=== PATIENT | female | born 1985 | race Caucasian/White ===

== ENCOUNTER → 2019-12-28 | Outpatient (CLI) | payer BC ==
--- NOTE | 2019-12-28 10:59 | MM ---
Reason for exam: clinical finding. Baseline mammogram. History: Took hormonal contraceptives for 2 years beginning at age 17. Physical Findings: Nurse Summary: 0.5cm nodule in the right breast at 5 o'clock (nurse ms). MG Diagnostic Mammo w CAD LEXII Bilateral CC and MLO view(s) were taken. The breast tissue is heterogeneously dense. This may lower the sensitivity of mammography. There is no discrete abnormality. These results were verbally communicated with the patient and result sheet given to the patient on 12/28/19. ASSESSMENT: Incomplete: need additional imaging evaluation, BI-RAD 0 RECOMMENDATION: Ultrasound of the right breast. (palpable by patient and nurse)
--- NOTE | 2019-12-28 11:00 | USB ---
Reason for exam: clinical finding. History: Took hormonal contraceptives for 2 years beginning at age 17. US Breast Limited RT Right limited breast ultrasound including focal area of concern, retroareolar and axilla demonstrates no cystic or solid lesion seen. Dense tissue at palpable. These results were verbally communicated with the patient and result sheet given to the patient on 12/28/19. ASSESSMENT: Negative, BI-RAD 1 RECOMMENDATION: Routine screening mammogram of both breasts at age 38. Manage patient on a clinical basis.
== END | disposition home or self-care (01) ==
LOC: RADMAMWWP 09:40
PROVIDERS: ATTEND Family Medicine
DX: R92.8 Other abnormal and inconclusive findings on diagnostic imaging of breast (principal)
CPT/HCPCS: 77066

== ENCOUNTER → 2020-06-01 | Outpatient (CLI) | payer BC ==
--- NOTE | 2020-06-01 09:03 | MR ---
EXAMINATION TYPE: MR brain wo con DATE OF EXAM: 06/01/2020 COMPARISON: NONE HISTORY: Hx of migraine, New onset of different type of headache since February-post covid, Neck pain TECHNIQUE: Multiplanar, multisequence imaging of the brain and brainstem is performed without IV cont rast. FINDINGS: Diffusion weighted images demonstrate no evidence of a recent infarct or other diffusion abnormality. The ventricular system and cisternal spaces are normal in size and appearance. The brain volume is a ge appropriate slight asymmetry and lobulation to the lateral ventricles. There are scattered small f oci of T2 hyperintensity seen throughout the white matter bilaterally. Approximately 15-20 scattered lesions noted. In addition there is more confluent right periventricular T2 hyperintensity coronal im age 14 and axial image 21. This has low T1 signal on sagittal image 13. There is prominent CSF anteri or aspect middle cranial fossa with additional area of volume loss lateral inferior left temporal lob e. Midline structures demonstrate normal morphology. The craniocervical junction appears within normal limits. Normal vascular flow voids are present. Mild mucosal thickening involving ethmoid sinuses rodrigo aterally and mild to minimal mucosal thickening involving bilateral maxillary sinuses. Hfsj-rd-azjtdj te mucosal thickening posterior left ethmoid sinuses and right frontal sinus. Globes are intact bilat erally. IMPRESSION: 1. Ehgr-hl-zgxgnhts nonspecific white matter changes somewhat prominent for patient's age, differenti al includes altered vascular mechanics related to products of migraine headaches. Other etiologies no t excluded. 2. Mild to moderate chronic paranasal sinus disease. 3. 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 Correlation with old outside CT or MRI would be extremely beneficial if this patient has such study.
== END | disposition home or self-care (01) ==
LOC: RADMRIMAIN 08:13
PROVIDERS: ATTEND Family Medicine
DX: R90.82 White matter disease, unspecified (principal); J32.8 Other chronic sinusitis
CPT/HCPCS: 70551

== ENCOUNTER → 2020-08-17 | Outpatient (CLI) | payer BC ==
[2020-08-17 16:50] LABS: Partial Thromboplastin Time 24.6 sec (22.0-30.0); Prothrombin Time 10.8 sec (9.0-12.0)
[2020-08-17 23:14] LABS: HCT 40.8 % (37.2-46.3); HGB 13.1 g/dL (12.0-15.0); MCH 30.5 pg (27.0-32.0); MCHC 32.1 g/dL (32.0-37.0); MCV 95.1 fL (80.0-97.0); Platelet Count 235 X 10*3/uL (140-440); RBC 4.29 X 10*6/uL (4.10-5.20); WBC 8.02 X 10*3/uL (4.50-10.00)
[2020-08-18 02:41] LABS: Cardiolipin Ab IgG Interp NEGATIVE (NEGATIVE); Cardiolipin Ab IgM Interp NEGATIVE (NEGATIVE); Cardiolipin IgA Antibody <0.5 U/mL; Cardiolipin IgM Antibody 0.4 U/mL
[2020-08-18 11:09] LABS: Protein C Antigen 99 % (72-160)
[2020-08-18 12:14] LABS: Anti-Thrombin III Antigen 82 % (80 - 120); Protein S Antigen 99 % (50 - 140)
[2020-08-18 13:28] LABS: African American GFR (CKD) 128.3 (60.0-200.0); Albumin 4.8 g/dL (3.80-4.90); Anion Gap 20.4 mmol/L (4.00-12.00); Carbon Dioxide 16.6 mmol/L (21.6-31.8); Globulin 2.4 g/dL (1.6-3.3); Non-African American GFR(CKD) 110.7 (60.0-200.0); Total Bilirubin 0.5 mg/dL (0.2-1.2); Total Protein 7.2 g/dL (6.2-8.2)
[2020-08-18 13:32] LABS: Protein C (Activity) 89 % (71-138)
[2020-08-18 13:33] LABS: Anti-Thrombin III Activity 97 % (79-109)
[2020-08-18 13:46] LABS: APTT 36 Sec(s) (<43); Dilute Russell Viper Venom 43 Sec(s) (<44)
== END | disposition home or self-care (01) ==
LOC: LABWHC1 15:22
PROVIDERS: ATTEND Physician Assistant
DX: R51.9 Headache, unspecified (principal)
CPT/HCPCS: 36415; 80053; 83090; 85027; 85300; 85301; 85302; 85303; 85305; 85306; 85379; 85384; 85610; 85613; 85730; 86147

== ENCOUNTER 2022-01-31 08:37 | Emergency (ER) | payer BC ==
[2022-01-31] MEDS ORDERED: SODIUM CHLORIDE 0.9% 1,000 ML IV ONE (09:33)
[2022-01-31 10:21] LABS: Appearance,Urine Clear (Clear); Basophils % (A) 0 %; Bilirubin,Urine Negative (Negative); Blood,Urine Negative (Negative); Color,Urine Colorless; Eosinophils # (A) 0.1 k/uL (0-0.7); Eosinophils % (A) 2 %; Glucose,Urine (UA) Negative (Negative); HCT 43.1 % (34.0-46.0); HGB 14.3 gm/dL (11.4-16.0); Ketones,Urine Negative (Negative); Leukocyte Esterase,Urine Negative (Negative); Lymphocytes # (A) 1.1 k/uL (1.0-4.8); Lymphocytes % (A) 16 %; MCH 30.4 pg (25.0-35.0); MCHC 33.1 g/dL (31.0-37.0); MCV 91.8 fL (80.0-100.0); Mean Platelet Volume 7.9; Monocytes # (A) 0.3 k/uL (0-1.0); Monocytes % (A) 4 %; Neutrophils # (A) 5.5 k/uL (1.3-7.7); Neutrophils % (A) 77 %; Nitrite,Urine Negative (Negative); PH, Urine 6.5 (5.0-8.0); Platelet Count 281 k/uL (150-450); Protein,Urine Negative (Negative); RDW 12.7 % (11.5-15.5); Specific Gravity,Urine 1.002 (1.001-1.035); Urobilinogen,Urine <2.0 mg/dL (<2.0); WBC 7.1 k/uL (3.8-10.6)
[2022-01-31 10:36] LABS: ALT 36 U/L (4-34); AST 45 U/L (14-36); African American GFR (CKD) >90 (>60 ml/min/1.73 sqM); Albumin 5.2 g/dL (3.5-5.0); Alkaline Phosphatase 70 U/L (38-126); Anion Gap 15 mmol/L; Blood Urea Nitrogen 11 mg/dL (7-17); Calcium 9.5 mg/dL (8.4-10.2); Carbon Dioxide 22 mmol/L (22-30); Chloride 101 mmol/L (98-107); Glucose 106 mg/dL (74-99); Lipase 95 U/L (23-300); Non-African American GFR(CKD) >90 (>60 ml/min/1.73 sqM); Potassium 3.4 mmol/L (3.5-5.1); Sodium 138 mmol/L (137-145); Total Bilirubin 0.7 mg/dL (0.2-1.3); Total Protein 8.6 g/dL (6.3-8.2)
--- NOTE | 2022-01-31 11:29 | CT ---
EXAMINATION TYPE: CT abdomen pelvis wo con DATE OF EXAM: 01/31/2022 HISTORY: Back pain that wraps around to front of abdomen CT DLP: 433.9 mGycm. Automated Exposure Control for Dose Reduction was Utilized. TECHNIQUE: CT scan of the abdomen and pelvis is performed without oral or IV contrast. COMPARISON: NONE FINDINGS: Within the limitations of a non-contrast study, the following observations are made. LUNG BASES: No significant abnormality is appreciated. LIVER/GB: Visualized liver is heterogeneously hypodense. PANCREAS: No significant abnormality is seen. SPLEEN: No significant abnormality is seen. ADRENALS: No significant abnormality is seen. KIDNEYS: No renal calculi or hydronephrosis is seen bilaterally. BOWEL: Suboptimal evaluation without enteric contrast and patient having little intra-abdominal fat. No suspicious small or large bowel dilatation is seen. Surgical changes from appendectomy in the righ t pelvis are noted.. GENITAL ORGANS: Anteverted uterus. LYMPH NODES: No greater than 1cm abdominal or pelvic lymph nodes are appreciated. OSSEOUS STRUCTURES: Rkppuhrm-ip-yxqboa disc space narrowing with vacuum disc phenomenon at lumbosacra l junction. Mild to moderate spurring. OTHER: No significant additional abnormality is seen. IMPRESSION: No renal stones or hydronephrosis is seen bilaterally. No acute findings identified on no ncontrast CT.
--- NOTE | 2022-01-31 12:29 | ED ---
Abdominal Pain HPI - General Chief Complaint: Abdominal Pain Stated Complaint: poss TSS - toxic shock syndrome Time Seen by Provider: 01/31/22 09:00 Source: patient Mode of arrival: ambulatory Limitations: no limitations - History of Present Illness Initial Comments: 36-year-old female past history of hypertension presents to emergency department with concern for toxic shock syndrome. States that she wore a tampon for 12 hours. Did not realize that she had 2 tampons in. Patient subsequently developed lower abdominal pain, fevers, bilateral flank pain and swollen ankles. States that her vaginal bleeding has completed at this time. Denies any v aginal discharge. Patient arrives afebrile. Has not taken any Motrin or Tylenol for fever control. Reports that the lower extremity swelling has resolved. Admits to increased frequency of urination without hematuria. Also reports to foul-smelling stools. Last antibiotic use was in November. No diarrhea. Mild lower abdominal cramping. No other alleviating, precipitating or modifying factors - Related Data Home Medications Medication Instructions Recorded Confirmed L.acidoph,Paracasei, B.lactis 1 cap PO DAILY 01/31/22 01/31/22 [Probiotic] Multivitamins, Thera [Multivitamin 1 tab PO DAILY 01/31/22 01/31/22 (formulary)] Rimegepant Sulfate [Nurtec Odt] 75 mg PO DAILY PRN 01/31/22 01/31/22 amLODIPine [Norvasc] 5 mg PO HS 01/31/22 01/31/22 Allergies Allergy/AdvReac Type Severity Reaction Status Date / Time No Known Allergies Allergy Verified 01/31/22 11:58 Review of Systems ROS Statement: Those systems with pertinent positive or pertinent negative responses have been documented in the HPI. ROS Other: All systems not noted in ROS Statement are negative. Past Medical History Past Medical History: Hypertension Additional Past Medical History / Comment(s): scleroderma/reynauds History of Any Multi-Drug Resistant Organisms: None Reported Past Surgical History: Appendectomy Past Psychological History: No Psychological Hx Reported Smoking Status: Never smoker Past Alcohol Use History: Occasional Past Drug Use History: None Reported General Exam Limitations: no limitations General appearance: alert, in no apparent distress Head exam: Present: atraumatic, normocephalic, normal inspection Eye exam: Present: normal appearance, PERRL, EOMI. Absent: scleral icterus, conjunctival injection, periorbital swelling ENT exam: Present: normal exam, mucous membranes moist Neck exam: Present: normal inspection. Absent: tenderness, meningismus, lymphadenopathy Respiratory exam: Present: normal lung sounds bilaterally. Absent: respiratory distress, wheezes, rales, rhonchi, stridor Cardiovascular Exam: Present: regular rate, normal rhythm, normal heart sounds. Absent: systolic murmur, diastolic murmur, rubs, gallop, clicks GI/Abdominal exam: Present: soft, normal bowel sounds. Absent: distended, tenderness, guarding, rebound, rigid Extremities exam: Present: normal inspection, full ROM, normal capillary refill. Absent: tenderness, pedal edema, joint swelling, calf tenderness Back exam: Present: normal inspection Neurological exam: Present: alert, oriented X3, CN II-XII intact Psychiatric exam: Present: normal affect, normal mood Skin exam: Present: warm, dry, intact, normal color. Absent: rash Course Vital Signs 01/31/22 01/31/22 08:58 13:32 Temperature 97.9 F 98.2 F Pulse Rate 68 63 Respiratory 18 16 Rate Blood Pressure 147/91 138/86 O2 Sat by Pulse 99 98 Oximetry Medical Decision Making - Medical Decision Making Upon arrival the patient was placed into room 20. History and physical exam was performed. IV access is established and the patient was given a liter bolus of normal saline. Laboratory studies are conducted and reviewed. CT of abdomen and pelvis was performed which demonstrates no acute process. I did discuss the laboratory results and CT with the patient. Patient will be discharged home at this time and instructed follow up with her primary care doctor for further evaluation. Return for any new or worsening symptoms. Patient is afebrile with no increase in white count. Patient denies any vaginal discharge and therefore states that the likelihood of toxic shock is slim. Patient understood this. Discharged home in stable condition - Lab Data Result diagrams: 01/31/22 10:01/31/22 10: Lab Results 01/31/22 01/31/22 01/31/22 Range/Units 10: 10: 10:07 WBC 7.1 (3.8-10.6) k/uL RBC 4.70 (3.80-5.40) m/uL Hgb 14.3 (11.4-16.0) gm/dL Hct 43.1 (34.0-46.0) % MCV 91.8 (80.0-100.0) fL MCH 30.4 (25.0-35.0) pg MCHC 33.1 (31.0-37.0) g/dL RDW 12.7 (11.5-15.5) % Plt Count 281 (150-450) k/uL MPV 7.9 Neutrophils % 77 % Lymphocytes % 16 % Monocytes % 4 % Eosinophils % 2 % Basophils % 0 % Neutrophils # 5.5 (1.3-7.7) k/uL Lymphocytes # 1.1 (1.0-4.8) k/uL Monocytes # 0.3 (0-1.0) k/uL Eosinophils # 0.1 (0-0.7) k/uL Basophils # 0.0 (0-0.2) k/uL Sodium (137-145) mmol/L Potassium (3.5-5.1) mmol/L Chloride (98-107) mmol/L Carbon Dioxide (22-30) mmol/L Anion Gap mmol/L BUN (7-17) mg/dL Creatinine (0.52-1.04) mg/dL Est GFR (CKD-EPI)AfAm (>60 ml/min/1.73 sqM) Est GFR (CKD-EPI)NonAf (>60 ml/min/1.73 sqM) Glucose (74-99) mg/dL Plasma Lactic Acid Alvaro (0.7-2.0) mmol/L Calcium (8.4-10.2) mg/dL Total Bilirubin (0.2-1.3) mg/dL AST (14-36) U/L ALT (4-34) U/L Alkaline Phosphatase (38-126) U/L Total Protein (6.3-8.2) g/dL Albumin (3.5-5.0) g/dL Lipase (23-300) U/L Urine Color Colorless Urine Appearance Clear (Clear) Urine pH 6.5 (5.0-8.0) Ur Specific Ross 1.002 (1.001-1.035) Urine Protein Negative (Negative) Urine Glucose (UA) Negative (Negative) Urine Ketones Negative (Negative) Urine Blood Negative (Negative) Urine Nitrite Negative (Negative) Urine Bilirubin Negative (Negative) Urine Urobilinogen <2.0 (<2.0) mg/dL Ur Leukocyte Esterase Negative (Negative) Urine HCG, Qual Not Detected (Not Detectd) 01/31/22 01/31/22 Range/Units 10:07 10:07 WBC (3.8-10.6) k/uL RBC (3.80-5.40) m/uL Hgb (11.4-16.0) gm/dL Hct (34.0-46.0) % MCV (80.0-100.0) fL MCH (25.0-35.0) pg MCHC (31.0-37.0) g/dL RDW (11.5-15.5) % Plt Count (150-450) k/uL MPV Neutrophils % % Lymphocytes % % Monocytes % % Eosinophils % % Basophils % % Neutrophils # (1.3-7.7) k/uL Lymphocytes # (1.0-4.8) k/uL Monocytes # (0-1.0) k/uL Eosinophils # (0-0.7) k/uL Basophils # (0-0.2) k/uL Sodium 138 (137-145) mmol/L Potassium 3.4 L (3.5-5.1) mmol/L Chloride 101 (98-107) mmol/L Carbon Dioxide 22 (22-30) mmol/L Anion Gap 15 mmol/L BUN 11 (7-17) mg/dL Creatinine 0.55 (0.52-1.04) mg/dL Est GFR (CKD-EPI)AfAm >90 (>60 ml/min/1.73 sqM) Est GFR (CKD-EPI)NonAf >90 (>60 ml/min/1.73 sqM) Glucose 106 H (74-99) mg/dL Plasma Lactic Acid Alvaro 0.9 (0.7-2.0) mmol/L Calcium 9.5 (8.4-10.2) mg/dL Total Bilirubin 0.7 (0.2-1.3) mg/dL AST 45 H (14-36) U/L ALT 36 H (4-34) U/L Alkaline Phosphatase 70 (38-126) U/L Total Protein 8.6 H (6.3-8.2) g/dL Albumin 5.2 H (3.5-5.0) g/dL Lipase 95 (23-300) U/L Urine Color Urine Appearance (Clear) Urine pH (5.0-8.0) Ur Specific Ross (1.001-1.035) Urine Protein (Negative) Urine Glucose (UA) (Negative) Urine Ketones (Negative) Urine Blood (Negative) Urine Nitrite (Negative) Urine Bilirubin (Negative) Urine Urobilinogen (<2.0) mg/dL Ur Leukocyte Esterase (Negative) Urine HCG, Qual (Not Detectd) Disposition Clinical Impression: Flank pain, Fever, Leg swelling, Abdominal pain Disposition: HOME SELF-CARE Condition: Stable Instructions (If sedation given, give patient instructions): Abdominal Pain (ED) Additional Instructions: Please take MiraLAX every other day until you have smooth bowel movements. Follow-up with [facility] primary care doctor in 2-4 days. Return for any new or worsening symptoms Is patient prescribed a controlled substance at d/c from ED?: No Referrals: Jena Thompson MD [Primary Care Provider] - 1-2 days Time of Disposition: 13:10
[2022-01-31 13:32] VITALS: BP 138/86; PULSE 63; RESP 16; TEMP 98.2
== END 2022-01-31 13:32 | disposition home or self-care (01) ==
LOC: EC 08:37
DX: R10.30 Lower abdominal pain, unspecified (principal); R50.9 Fever, unspecified; I10 Essential (primary) hypertension; M79.89 Other specified soft tissue disorders
CPT/HCPCS: 36415; 74176; 80053; 81003; 81025; 83605; 83690; 85025; 96360; 99285

== ENCOUNTER → 2022-12-27 | Outpatient (CLI) | payer BC ==
--- NOTE | 2022-12-27 17:37 | XR ---
EXAMINATION TYPE: XR KUB DATE OF EXAM: 12/27/2022 Comparison: None Clinical History: 37-year-old female N20.0 calculus Findings: Nonobstructive bowel gas pattern. Mild overall stool. No suspicious calcification seen. Impression: No specific abnormality seen.
== END | disposition home or self-care (01) ==
LOC: RADXRMAIN 13:52
PROVIDERS: ATTEND Urology
DX: N20.0 Calculus of kidney (principal)
CPT/HCPCS: 74018

== ENCOUNTER → 2023-02-26 | Outpatient (CLI) | payer BC ==
--- NOTE | 2023-02-26 12:28 | XR ---
EXAMINATION TYPE: XR KUB DATE OF EXAM: 02/26/2023 COMPARISON: KUB 12/27/2022, CT abdomen and pelvis 01/31/2022 HISTORY: Renal calculi TECHNIQUE: Single supine KUB image of the abdomen is obtained FINDINGS: Small bowel demonstrates no evidence for dilatation or air fluid levels. Gas and fecal material is seen in non-distended colon. No definitive renal or ureteral calculi. Stable right sided pelvic phlebolith. The lung bases are clear. The osseous structures are intact. IMPRESSION: 1. Overall nonobstructive bowel gas pattern. 2. No definitive renal or ureteral calculi.
== END | disposition home or self-care (01) ==
LOC: RADXRMAIN 11:58
PROVIDERS: ATTEND Urology
DX: N20.0 Calculus of kidney (principal); R14.0 Abdominal distension (gaseous)
CPT/HCPCS: 74018

== ENCOUNTER 2023-04-04 16:38 | Emergency (ER) | payer BC ==
--- NOTE | 2023-04-04 16:50 | ED ---
Chest Pain HPI - General Chief Complaint: Chest Pain Stated Complaint: SOB Time Seen by Provider: 04/04/23 16:46 Source: patient Mode of arrival: ambulatory Limitations: no limitations - History of Present Illness Initial Comments: 37-year-old female presents to the emergency department reporting chest pain. States it's been going on for the past 3 days. She describes it as a pressure sensation over her anterior chest. Today the patient felt mildly short of breath and had some tingling in her fingers. Denies previous cardiac history. No history of DVT or PE. No ripping or tearing sensation to her back. Does admit to recent upper respiratory symptoms. Pain is not pleuritic. She did not take anything for the symptoms before coming into the emergency department. Denies significant family history of cardiac disease. No concern for . No history of intravenous drug use. No other alleviating, precipitating or modifying factors - Related Data Home Medications Medication Instructions Recorded Confirmed Rimegepant Sulfate [Nurtec Odt] 75 mg PO DAILY PRN 01/31/22 04/04/23 Aspirin EC [Ecotrin Low Dose] 81 mg PO DAILY 04/04/23 04/04/23 lisinopriL [Prinivil] 10 mg PO DAILY 04/04/23 04/04/23 Allergies Allergy/AdvReac Type Severity Reaction Status Date / Time No Known Allergies Allergy Verified 04/04/23 19:01 Review of Systems ROS Statement: Those systems with pertinent positive or pertinent negative responses have been documented in the HPI. ROS Other: All systems not noted in ROS Statement are negative. Past Medical History Past Medical History: Hypertension Additional Past Medical History / Comment(s): scleroderma/reynauds History of Any Multi-Drug Resistant Organisms: None Reported Past Surgical History: Appendectomy Past Psychological History: No Psychological Hx Reported Smoking Status: Never smoker Past Alcohol Use History: Occasional Past Drug Use History: None Reported General Exam Limitations: no limitations General appearance: alert, in no apparent distress Head exam: Present: atraumatic, normocephalic, normal inspection Eye exam: Present: normal appearance, PERRL, EOMI. Absent: scleral icterus, conjunctival injection, periorbital swelling ENT exam: Present: normal exam, mucous membranes moist Neck exam: Present: normal inspection. Absent: tenderness, meningismus, lymphadenopathy Respiratory exam: Present: normal lung sounds bilaterally. Absent: respiratory distress, wheezes, rales, rhonchi, stridor Cardiovascular Exam: Present: regular rate, normal rhythm, normal heart sounds. Absent: systolic murmur, diastolic murmur, rubs, gallop, clicks GI/Abdominal exam: Present: soft, normal bowel sounds. Absent: distended, tenderness, guarding, rebound, rigid Extremities exam: Present: normal inspection, full ROM, normal capillary refill. Absent: tenderness, pedal edema, joint swelling, calf tenderness Back exam: Present: normal inspection Neurological exam: Present: alert, oriented X3, CN II-XII intact Psychiatric exam: Present: normal affect, normal mood Skin exam: Present: warm, dry, intact, normal color. Absent: rash Course Vital Signs 04/04/23 04/04/23 04/04/23 16:41 17:30 18:00 Temperature 97.6 F Pulse Rate 78 80 78 Respiratory 16 17 19 Rate Blood Pressure 165/93 141/90 132/86 O2 Sat by Pulse 99 100 100 Oximetry 04/04/23 04/04/23 04/04/23 19:00 20:00 20:13 Temperature 98.1 F Pulse Rate 75 74 Respiratory 17 18 Rate Blood Pressure 132/86 128/86 O2 Sat by Pulse 99 100 Oximetry Chest Pain MDM - MDM Was pt. sent in by a medical professional or institution (MONICA Horton, DX BOARD OPERATOR, urgent care, hospital, or senior care...) When possible be specific @ -No Did you speak to anyone other than the patient for history (EMS, parent, family, police, friend...)? What history was obtained from this source @ -No Did you review nursing and triage notes (agree or disagree)? Why? @ -I reviewed and agree with nursing and triage notes Were old charts reviewed (outside hosp., previous admission, EMS record, old EKG, old radiological studies, urgent care reports/EKG's, senior care records)? Report findings @ -No old charts were reviewed Differential Diagnosis (chest pain, altered mental status, abdominal pain women, abdominal pain men, vaginal bleeding, weakness, fever, dyspnea, syncope, headache, dizziness, GI bleed, back pain, seizure, CVA, palpatations, mental health, musculoskeletal)? @ -Differential Chest Pain: Stable Angina, Unstable Angina, STEMI, NSTEMI Aortic Dissection, Pneumothorax, Musculoskeletal, Esophageal Spasm GERD, Cholecystitis, Pancreatitis, Zoster, this is not meant to be an all-inclusive list. EKG interpreted by me (3pts min.). @ -Demonstrated sinus rhythm with a rate of 72. SC interval 136. QRS 88. QTC 400. J-point elevation inferior, anterior and lateral leads. No reciprocal changes X-rays interpreted by me (1pt min.). @ -Yes and demonstrates no acute process CT interpreted by me (1pt min.). @ -None done U/S interpreted by me (1pt. min.). @ -None done What testing was considered but not performed or refused? (CT, X-rays, U/S, labs)? Why? @ -None What meds were considered but not given or refused? Why? @ -None Did you discuss the management of the patient with other professionals (surekha martino iNereydaeNereyda Horton, PA, DX BOARD OPERATOR, lab, RT, psych nurse, perinatal social worker, gasoline tester, teacher, inshore undersea warfare officer, gearcase assembler)? Give summary @ -No Was smoking cessation discussed for >3mins.? @ -No Was critical care preformed (if so, how long)? @ -No Were there social determinants of health that impacted care today? How? (Homelessness, low income, unemployed, alcoholism, drug addiction, transportation, low edu. Level, literacy, decrease access to med. care, usp, rehab)? @ -No Was there de-escalation of care discussed even if they declined (Discuss DNR or withdrawal of care, Hospice)? DNR status @ -No What co-morbidities impacted this encounter? (DM, HTN, Smoking, COPD, CAD, Cancer, CVA, ARF, Chemo, Hep., AIDS, mental health diagnosis, sleep apnea, morbid obesity)? @ -None Was patient admitted / discharged? Hospital course, mention meds given and route, prescriptions, significant lab abnormalities, going to OR and other pertinent info. @ -Upon arrival patient was placed into room 25. Thorough history and physical exam was performed. IV is established. Laboratory studies are conducted. Chest x-ray was performed. On return the results they are discussed the patient. I did discuss the diagnosis, differential treatment options. Patient feels comfortable going home at this time. She does have a low heart score. Patient is to follow-up with her primary care doctor and get an echo. Return for any new or worsening symptoms. Patient discharged in stable condition Undiagnosed new problem with uncertain prognosis? @ -No Drug Therapy requiring intensive monitoring for toxicity (Heparin, Nitro, Insulin, Cardizem)? @ -No Were any procedures done? @ -No Diagnosis/symptom? @ -Acute chest pain Acute, or Chronic, or Acute on Chronic? @ -Acute Uncomplicated (without systemic symptoms) or Complicated (systemic symptoms)? @ -Complicated Side effects of treatment? @ -No Exacerbation, Progression, or Severe Exacerbation? @ -No Poses a threat to life or bodily function? How? (Chest pain, [place], [place], pneumonia, PE, COPD, DKA, ARF, appy, cholecystitis, CVA, Diverticulitis, Homicidal, Suicidal, threat to staff... and all critical care pts) @ -No Disposition Clinical Impression: Chest pain Disposition: HOME SELF-CARE Condition: Stable Instructions (If sedation given, give patient instructions): Chest Pain (ED) Additional Instructions: I recommend that you follow up with your primary care doctor and have an echo completed of your heart. Return for any new or worsening symptoms Is patient prescribed a controlled substance at d/c from ED?: No Referrals: Jena Thompson MD [Primary Care Provider] - 1-2 days Time of Disposition: 19:39
[2023-04-04 17:55] LABS: Basophils # (A) 0.1 k/uL (0-0.2); Basophils % (A) 1 %; Eosinophils # (A) 0.2 k/uL (0-0.7); Eosinophils % (A) 3 %; HCT 40.4 % (34.0-46.0); HGB 13.4 gm/dL (11.4-16.0); Lymphocytes # (A) 2.7 k/uL (1.0-4.8); Lymphocytes % (A) 38 %; MCH 30.5 pg (25.0-35.0); MCHC 33.2 g/dL (31.0-37.0); MCV 91.9 fL (80.0-100.0); Mean Platelet Volume 7.5; Monocytes # (A) 0.5 k/uL (0-1.0); Monocytes % (A) 7 %; Neutrophils # (A) 3.3 k/uL (1.3-7.7); Neutrophils % (A) 47 %; Platelet Count 207 k/uL (150-450); RDW 12.8 % (11.5-15.5); WBC 6.9 k/uL (3.8-10.6)
[2023-04-04 18:05] LABS: ALT 33 U/L (4-34); AST 36 U/L (14-36); African American GFR (CKD) >90 (>60 ml/min/1.73 sqM); Albumin 4.8 g/dL (3.5-5.0); Alkaline Phosphatase 55 U/L (38-126); Anion Gap 13 mmol/L; Blood Urea Nitrogen 14 mg/dL (7-17); Calcium 9.8 mg/dL (8.4-10.2); Carbon Dioxide 23 mmol/L (22-30); Chloride 100 mmol/L (98-107); Glucose 115 mg/dL (74-99); Magnesium 1.5 mg/dL (1.6-2.3); Non-African American GFR(CKD) >90 (>60 ml/min/1.73 sqM); Potassium 3.9 mmol/L (3.5-5.1); Sodium 136 mmol/L (137-145); Total Bilirubin 0.8 mg/dL (0.2-1.3); Total Protein 8.1 g/dL (6.3-8.2)
[2023-04-04 18:16] LABS: Partial Thromboplastin Time 24.7 sec (22.0-30.0); Prothrombin Time 11.1 sec (10.0-12.5)
--- NOTE | 2023-04-04 18:53 | XR ---
EXAMINATION TYPE: XR chest 2V DATE OF EXAM: 04/04/2023 COMPARISON: None HISTORY: 37-year-old female with chest pain TECHNIQUE: PA and lateral views FINDINGS: The cardiomediastinal silhouette, aorta, and pulmonary vasculature are within normal limits. Lungs an d pleural spaces are clear. IMPRESSION: No acute cardiopulmonary process.
[2023-04-04 20:24] VITALS: BP 128/86; PULSE 74; RESP 18; TEMP 98.1
== END 2023-04-04 20:15 | disposition home or self-care (01) ==
LOC: EC 16:38
DX: R07.89 Other chest pain (principal); I10 Essential (primary) hypertension; Z79.899 Other long term (current) drug therapy; Z79.82 Long term (current) use of aspirin
CPT/HCPCS: 36415; 71046; 80053; 83735; 84484; 85025; 85379; 85610; 85730; 93005; 99285